=== PATIENT | female | born 1930 | race Caucasian/White ===

== ENCOUNTER 2017-07-18 20:45 | Emergency (ER) | payer OTHER, MEDICARE ==
[~2017-07-18] VITALS: Ht 147.3 cm; Wt 54.4 kg
--- NOTE | ~2017-07-18 | EKG ---
[place] [address] [facility] [place] [address] ELECTROCARDIOGRAM REPORT Name: NEHA GONZALEZ [id number] Admission: 07/18/17 Attend Phys: Discharge: 07/18/17 Date of : 34 Report #: [id number] THIS REPORT FOR: //name// [facility] ED Test Date: 2017-07-18 Test Time: 20:54:26 Pat Name: NEHA GONZALEZ Department: Room: Gender: F [employer] Helper: NIKKI : 1930 Requested By: Alyson Madison Order Number: [id number] MD: Fabian White Measurements Intervals [place] Rate: 78 P: 35 CT: 182 QRS: 14 QRSD: 79 T: 31 QT: 360 QTc: 411 Interpretive Statements Sinus rhythm Low voltage, precordial leads Probable anteroseptal infarct, old Compared to ECG 09/08/2000 06:21:08 Low QRS voltage now present Myocardial infarct finding now present Electronically Signed On 07-19-2017 12:24:07 [employer] by Fabian White [email or web address] <ELECTRONICALLY SIGNED> By: Fabian White MD 07/19/174 53 53 Fabian White MD /KALEIGH
[2017-07-18 21:42] LABS: HEMATOCRIT 38.1 % (37.0-47.0); HEMOGLOBIN 12.5 gm/dL (12.0-15.0); MCH 30.3 pg (26.0-34.0); MCHC 32.7 g/dL (28.0-37.0); MCV 92.7 fL (80.0-100.0); RBC 4.11 mil/uL (4.20-5.00); RDW 13.3 % (10.5-14.5)
[2017-07-18 21:51] LABS: CALCIUM 9.1 mg/dL (8.5-10.1); CREATININE 1.3 mg/dL (0.6-1.0); MAGNESIUM 2.1 mg/dL (1.8-2.4); POTASSIUM 4.6 mmol/L (3.5-5.1)
[2017-07-18 22:54] LABS: URINE BILIRUBIN NEGATIVE (Negative); URINE BLOOD NEGATIVE (Negative); URINE CLARITY CLEAR; URINE COLOR YELLOW; URINE GLUCOSE-RANDOM* NEGATIVE (Negative); URINE KETONES NEGATIVE (Negative); URINE PROTEIN (DIPSTICK) NEGATIVE (Negative); URINE SPECIFIC GRAVITY 1.015 (1.005-1.035); URINE UROBILINOGEN 0.2 E.U./dl (0.2-1.0)
[2017-07-18 22:59] LABS: URINE LEUKOCYTES-REFLEX 2+ (Negative); URINE NITRITE-REFLEX POSITIVE (Negative)
[2017-07-18 23:00] LABS: SQUAMOUS 0-3 Few /LPF (0-3)
[2017-07-18 23:01] LABS: BACTERIA-REFLEX >30 Many /HPF (None Seen); CASTS None Seen /LPF (None Seen); CRYSTALS None Seen /LPF (None Seen); URINE RBC 0-2 Rare /HPF (0-2)
[2017-07-18] MEDS ORDERED: KEFLEX500 M1 PO (23:34)
[2017-07-18 23:46] VITALS: BP 141/53
== END 2017-07-18 23:50 | disposition left against medical advice (07) ==
LOC: ER 20:45
PROVIDERS: Emergency Medicine
DX: R55 Syncope and collapse (principal); N39.0 Urinary tract infection, site not specified; I10 Essential (primary) hypertension; E78.5 Hyperlipidemia, unspecified

== ENCOUNTER → 2020-08-25 | Outpatient (CLI) | payer OTHER, MEDICARE ==
[~2020-08-25] MED LIST: KEFLEX500 M1 PO
== END ==
LOC: SJCVCIMAG 14:06
PROVIDERS: ATTEND Podiatrist Foot & Ankle Surgery
DX: I70.202 Unspecified atherosclerosis of native arteries of extremities, left leg (principal); M79.661 Pain in right lower leg; M79.662 Pain in left lower leg